=== PATIENT | male | born 1975 | race Caucasian/White ===

== ENCOUNTER 2016-10-16 21:40 | Emergency (ER) | payer MEDICAID ==
[~2016-10-16] VITALS: Ht 162.6 cm; Wt 106.6 kg
--- NOTE | 2016-10-16 22:10 | NUR ---
Patient discharged to home in stable conditon. Written and verbal after care instructions given. Patient verbalizes understanding of instructions.
[2016-10-16 22:16] VITALS: BP 128/70
== END 2016-10-16 22:10 | disposition home or self-care (01) ==
LOC: ER 21:40
DX: S92.252A Displaced fracture of navicular [scaphoid] of left foot, initial encounter for closed fracture (principal); F17.200 Nicotine dependence, unspecified, uncomplicated; E11.9 Type 2 diabetes mellitus without complications; X58.XXXA Exposure to other specified factors, initial encounter; Y93.89 Activity, other specified; Y99.8 Other external cause status; Y92.89 Other specified places as the place of occurrence of the external cause
CPT/HCPCS: 29125; 99283; A4663

== ENCOUNTER 2016-10-31 21:03 | Emergency (ER) | payer MEDICAID ==
--- NOTE | 2016-10-31 22:32 | NUR ---
PT WAS CALLED SEVERAL TIMES TO BE TRIAGE IN A SPAN OF 1.5HR. PT WAS NOT PRESENT
== END 2016-10-31 22:34 | disposition left against medical advice (07) ==
LOC: ER 21:05
DX: Z53.21 Procedure and treatment not carried out due to patient leaving prior to being seen by health care provider (principal)